=== PATIENT | male | born 2000 | race Caucasian/White ===

== ENCOUNTER 2024-11-29 14:21 | Emergency (ER) | payer SELFPAY | END 2024-11-29 22:00 | disposition left against medical advice (07) | LOC: MW.ED 14:21 | DX: Z53.21 Procedure and treatment not carried out due to patient leaving prior to being seen by health care provider (principal) | CPT/HCPCS: 73130-26-LT; 73130-LT ==

== ENCOUNTER 2025-07-17 19:23 | Emergency (ER) | payer OTHER | END 2025-07-17 22:10 | LOC: MW.ED 19:23 | DX: Z04.1 Encounter for examination and observation following transport accident (principal) | CPT/HCPCS: 99282; 99283 ==

== ENCOUNTER 2025-08-30 12:21 | Emergency (ER) | payer SELFPAY ==
[2025-08-30 12:45] LABS: BASOPHILS ABSOLUTE AUTO 0.02 K/uL (0.00-0.20); BASOPHILS PERCENT AUTO 0.3 % (0.0-1.0); EOSINOPHILS ABSOLUTE AUTO 0.09 K/uL (0.00-0.45); EOSINOPHILS PERCENT AUTO 1.4 % (0.0-6.0); IMMATURE GRAN ABSOLUTE AUTO 0.01 K/uL (0.00-0.05); IMMATURE GRAN PERCENT AUTO 0.2 % (0.0-0.4); LYMPHOCYTES ABSOLUTE AUTO 1.63 K/uL (1.00-4.80); LYMPHOCYTES PERCENT AUTO 25.0 % (24.0-44.0); MEAN PLATELET VOLUME 9.7 fL (9.4-12.4); MONOCYTES ABSOLUTE AUTO 0.39 K/uL (0.00-0.80); MONOCYTES PERCENT AUTO 6.0 % (0.0-8.0); NEUTROPHILS ABSOLUTE AUTO 4.38 K/uL (1.80-7.70); NEUTROPHILS PERCENT AUTO 67.1 % (41.0-71.0); NRBC ABSOLUTE 0.00 K/uL (0.00-0.02); NRBC PERCENT 0.0 /100WBC (0.0-0.2); PLATELET COUNT,PLT 191 K/uL (150-400); RED BLOOD CELL COUNT 5.35 M/uL (4.52-5.90); WHITE BLOOD CELL COUNT,WBC 6.52 K/uL (3.9-11.3)
[2025-08-30 13:09] LABS: A/G RATIO 1.4 (0.9-1.6); ALANINE AMINOTRANSFERASE,ALT 27 IU/L (14-63); ASPARTATE AMNIOTRANSFERASE,AST 30 IU/L (15-37); BILIRUBIN TOTAL 0.7 mg/dL (0.2-1.0); BLOOD UREA NITROGEN,BUN 11 mg/dL (7.0-18.0); CARBON DIOXIDE,CO2 28.5 mmol/L (21.0-32.0); CHLORIDE,CL 105 mmol/L (98-107); CREATININE 1.0 mg/dL (0.8-1.3); EST CRCL DRUG DOSING (CG) 116.64 mL/min; GLUCOSE RANDOM 93 mg/dL (74-106); POTASSIUM,K 4.2 mmol/L (3.5-5.1); PROTEIN TOTAL,TP 7.3 g/dL (6.4-8.2); SODIUM,NA 140 mmol/L (136-148)
[2025-08-30 13:15] LABS: ESTIMATED GFR 108 mL/min (>60)
[2025-08-30] MEDS: Alum Hydrox/Mag Hydrox/Simeth 15 ML, Lidocaine 2% 5 ML PO ONE (13:51)
== END 2025-08-30 14:46 | disposition home or self-care (01) ==
LOC: MW.ED 12:21
DX: M54.9 Dorsalgia, unspecified (principal)
CPT/HCPCS: 36415; 71045; 80053; 84484; 85025; 93005; 99285; A9270; J3490; 93010; 99284

== ENCOUNTER 2025-10-13 22:18 | Emergency (ER) | payer SELFPAY ==
[2025-10-13] MEDS: Ondansetron 4 MG Tab.DIS PO ONE (22:38)
== END 2025-10-13 23:10 | disposition home or self-care (01) ==
LOC: MW.ED 22:18
DX: A08.4 Viral intestinal infection, unspecified (principal)
CPT/HCPCS: 87428; 99284; A9270; 99283